=== PATIENT | female | born 1990 | race American Indian/Alaskan Native ===

== ENCOUNTER 2017-04-19 23:02 | Emergency (ER) | payer SELFPAY ==
[2017-04-19 23:18] VITALS: BP 127/86
== END 2017-04-20 16:42 | disposition left against medical advice (07) ==
LOC: ED 23:02
DX: R21 Rash and other nonspecific skin eruption (principal); Z53.21 Procedure and treatment not carried out due to patient leaving prior to being seen by health care provider